=== PATIENT | female | born 1945 | race Caucasian/White ===

== ENCOUNTER 2022-04-24 10:36 | Emergency (ER) | payer MEDICARE, OTHER ==
[~2022-04-24] VITALS: Ht 154.9 cm; Wt 71.4 kg
[~2022-04-24 10:36] MED LIST: CETI10CA PO; CYAN100019 PO; FLO110IN INH; FLUT16SP26 BOTHNARES; HYDR-4353 PO; LEVO75TA PO; METO-539 PO; MONT10TA21 PO; OMEG10007 PO
[2022-04-24 11:00] VITALS: BP 139/66
[2022-04-24] MEDS ORDERED: HYDR-3965 PO (12:18)
== END 2022-04-24 12:43 | disposition home or self-care (01) ==
LOC: ER 10:36
DX: S62.626A Displaced fracture of middle phalanx of right little finger, initial encounter for closed fracture (principal); J45.909 Unspecified asthma, uncomplicated; Z88.5 Allergy status to narcotic agent; Z88.6 Allergy status to analgesic agent; W23.0XXA Caught, crushed, jammed, or pinched between moving objects, initial encounter; Y93.89 Activity, other specified; Y92.89 Other specified places as the place of occurrence of the external cause; Y99.8 Other external cause status
CPT/HCPCS: 29130; 73140; 99283

== ENCOUNTER 2023-07-10 09:49 | Day surgery (SDC) | payer MEDICARE, OTHER ==
[2023-07-06 15:28] LABS: BASOPHILS # (AUTO) 0.1 X10'3 (0-0.2); BASOPHILS % (AUTO) 1.5 % (0-1); EOSINOPHILS # (AUTO) 0.3 X10'3 (0-0.9); EOSINOPHILS % (AUTO) 5.1 % (0-6); HEMATOCRIT 34.4 % (35.0-45.0); HEMOGLOBIN 11.6 g/dl (12.0-16.0); LYMPHOCYTES # (AUTO) 1.5 X10'3 (1.1-4.8); LYMPHOCYTES % (AUTO) 24.3 % (21-51); MEAN CORPUSCULAR HEMOGLOBIN 29.1 PG (27.0-31.0); MEAN CORPUSCULAR HGB CONC 33.7 g/dL (33.0-36.5); MEAN CORPUSCULAR VOLUME 86.5 FL (78-98); MEAN PLATELET VOLUME 6.4 FL (7.4-10.4); MONOCYTES # (AUTO) 0.5 X10'3 (0-0.9); MONOCYTES % (AUTO) 8.8 % (2-12); NEUTROPHILS # (AUTO) 3.7 X10'3 (1.8-7.7); NEUTROPHILS % (AUTO) 60.3 % (42-75); PLATELET COUNT 315 X10'3 (140-440); RED BLOOD COUNT 3.97 X10'6 (4.20-5.60); RED CELL DISTRIBUTION WIDTH 13.7 % (11.5-14.5); WHITE BLOOD COUNT 6.1 X10'3 (4.5-11.0)
[2023-07-06 15:40] LABS: ALANINE AMINOTRANSFERASE 25 U/L (12-78); ALBUMIN 3.8 G/DL (3.4-5.0); ALBUMIN/GLOBULIN RATIO 0.8 (1.1-1.5); ALKALINE PHOSPHATASE 91 IU/L (46-116); ANION GAP 6 (8-16); ASPARTATE AMINO TRANSFERASE 17 U/L (10-37); BILIRUBIN,TOTAL 0.3 MG/DL (0.1-1.0); BLOOD UREA NITROGEN 13 MG/DL (7-18); BUN/CREATININE RATIO 15.9 (10.0-20.0); CALCIUM 9.2 MG/DL (8.5-10.1); CHLORIDE 104 MMOL/L (99-107); CREATININE 0.82 MG/DL (0.40-0.90); GLUCOSE 173 MG/DL (70-104); POTASSIUM 3.8 MMOL/L (3.5-5.1); SODIUM 140 MMOL/L (135-145); TOTAL CARBON DIOXIDE 29.8 MMOL/L (24-32); TOTAL PROTEIN 8.3 G/DL (6.4-8.2); eGFR 67 ML/MIN
[2023-07-10] VITALS (10 sets, daily range): BP systolic 110–127; BP diastolic 58–73; PULSE 79–98; RESP 10–20; TEMP 98.9; O2SAT 93–99
[~2023-07-10] VITALS: Ht 152.4 cm; Wt 68.9 kg
[~2023-07-10 09:49] MED LIST changes: +CYCL-1 PO; +DOCUMENT DATE & TIME OF BETA-BLOCKER PO ONE; +LISI2.5T14 PO; -METO-539 PO; +MONT-47 PO; -MONT10TA21 PO; -OMEG10007 PO; +OXYB-58 PO; +PANT40TA54 PO; +PRAV40TA3 PO; +albuterol 2.5 MG/3 ML nebule NEB ONE; +cefazolin 2gm/D5W 100mL 100 ML IV ONE; +famotidine 20mg tablet PO ONE; +ringers solution, lacted 1,000 ML IV SCH
[2023-07-10] MEDS ORDERED: fentaNYL/PF 50MCG/1 ML 2ML syringe ONE (13:00)
[2023-07-10] MEDS ORDERED: midazolam 1 mg/ML 2ml injection ONE (13:01)
[2023-07-10] MEDS ORDERED: propofol inj 20 ML IV ONE ×2 (13:17)
[2023-07-10] MEDS ORDERED: ondansetron/PF 4mg/2ml inj ONE (13:17)
[2023-07-10] MEDS ORDERED: LIDOcaine 2% (20mg/ml) 5ml vial SQ ONE (13:28)
[2023-07-10] MEDS ORDERED: BUPIVAcaine/PF 2.5mg/ml (0.25%) 10ml vial SQ ONE (13:30)
[2023-07-10] MEDS ORDERED: ringers solution, lacted 1,000 ML IV SCH (14:05)
[2023-07-10] MEDS ORDERED: morphine 2 MG/ML inj. syringe IV PRN (14:05)
[2023-07-10] MEDS ORDERED: meperidine/PF 25mg/ml syringe IV PRN ×3 (14:05)
[2023-07-10] MEDS ORDERED: proCHLORperazine 10 MG/2 ml inj IV PRN (14:05)
[2023-07-10] MEDS ORDERED: morphine 4 MG/ML inj SYRINge IV PRN (14:05)
[2023-07-10] MEDS ORDERED: labetalol 20mg/4ml (5mg/ml) syringe IV PRN (14:05)
[2023-07-10] MEDS ORDERED: hydrALAZINE 20mg/ml inj. IV PRN (14:05)
[2023-07-10] MEDS ORDERED: ondansetron/PF 4mg/2ml inj IV PRN (14:05)
[2023-07-10] MEDS ORDERED: BUPIVAcaine/PF 2.5mg/ml (0.25%) 10ml vial ONE (14:23)
[2023-07-10] MEDS ORDERED: LIDOcaine 2% (20mg/ml) 5ml vial ONE (14:23)
== END 2023-07-10 15:06 | disposition home or self-care (01) ==
LOC: PAS 09:49
PROVIDERS: ATTEND Orthopaedic Surgery Hand Surgery
DX: M19.042 Primary osteoarthritis, left hand (principal); J44.9 Chronic obstructive pulmonary disease, unspecified; G47.33 Obstructive sleep apnea (adult) (pediatric); K21.9 Gastro-esophageal reflux disease without esophagitis; E11.9 Type 2 diabetes mellitus without complications; I10 Essential (primary) hypertension; F32.A Depression, unspecified; F41.9 Anxiety disorder, unspecified; E03.9 Hypothyroidism, unspecified; E66.01 Morbid (severe) obesity due to excess calories; Z68.30 Body mass index [BMI] 30.0-30.9, adult; G89.29 Other chronic pain; Z88.8 Allergy status to other drugs, medicaments and biological substances; Z98.890 Other specified postprocedural states; Z90.49 Acquired absence of other specified parts of digestive tract; Z98.51 Tubal ligation status; Z79.899 Other long term (current) drug therapy; Z79.84 Long term (current) use of oral hypoglycemic drugs; Z72.89 Other problems related to lifestyle; Z80.1 Family history of malignant neoplasm of trachea, bronchus and lung; Z83.3 Family history of diabetes mellitus
CPT/HCPCS: 26860; 36415; 80053; 82948; 85025; 93005; C1713; J0690; J2250; J2405; J2704; J3010; J3490; J7030; J7120; Z7506; Z7508; Z7512; A4215; A4618; A7000; C1769

== ENCOUNTER 2023-11-06 05:48 | Day surgery (SDC) | payer MEDICARE, OTHER ==
[2023-11-01 15:09] LABS: BASOPHILS # (AUTO) 0.1 X10'3 (0-0.2); BASOPHILS % (AUTO) 1.9 % (0-1); EOSINOPHILS # (AUTO) 0.3 X10'3 (0-0.9); LYMPHOCYTES # (AUTO) 1.8 X10'3 (1.1-4.8); LYMPHOCYTES % (AUTO) 29.7 % (21-51); MEAN CORPUSCULAR HEMOGLOBIN 29.7 PG (27.0-31.0); MEAN CORPUSCULAR HGB CONC 33.8 g/dL (33.0-36.5); MEAN PLATELET VOLUME 6.6 FL (7.4-10.4); MONOCYTES # (AUTO) 0.6 X10'3 (0-0.9); MONOCYTES % (AUTO) 9.8 % (2-12); NEUTROPHILS # (AUTO) 3.4 X10'3 (1.8-7.7); NEUTROPHILS % (AUTO) 54.6 % (42-75); PRE OP HEMATOCRIT 33.4 % (35.0-45.0); PRE OP HEMOGLOBIN 11.3 g/dL (12.0-16.0); PRE OP PLATELET COUNT 339 X10'3 (140-440); PRE OP WHITE BLOOD COUNT 6.2 10'3 (4.8-10.8); RED BLOOD COUNT 3.79 X10'6 (4.20-5.60); RED CELL DISTRIBUTION WIDTH 13.9 % (11.5-14.5)
[2023-11-01 15:20] LABS: ALBUMIN 3.9 G/DL (3.4-5.0); ALKALINE PHOSPHATASE 85 IU/L (46-116); BLOOD UREA NITROGEN 15 MG/DL (7-18); BUN/CREATININE RATIO 18.5 (10.0-20.0); CHLORIDE 105 MMOL/L (99-107); CREATININE 0.81 MG/DL (0.40-0.90); PRE OP ALT 21 U/L (30-65); PRE OP ANION GAP 5 (8-16); PRE OP AST 14 U/L (10-37); PRE OP BILIRUB, TOTAL 0.3 MG/DL (0.0-1.0); PRE OP GLUCOSE 99 MG/DL (70-104); PRE OP POTASSIUM 4.1 MMOL/L (3.4-5.1); PRE OP SODIUM 142 MMOL/L (135-145); TOTAL CARBON DIOXIDE 32.2 MMOL/L (24-32); eGFR 68 ML/MIN
[2023-11-06] VITALS (8 sets, daily range): BP systolic 112–139; BP diastolic 63–91; PULSE 83–100; RESP 10–16; TEMP 97–97.6; O2SAT 93–99
[~2023-11-06] VITALS: Ht 152.4 cm; Wt 67.2 kg
[2023-11-06] MEDS: cefazolin 2gm/D5W 100mL 100 ML IV ONE (05:30)
[~2023-11-06 05:48] MED LIST changes: -CYAN100019 PO; -CYCL-1 PO; -DOCUMENT DATE & TIME OF BETA-BLOCKER PO ONE; -FLO110IN INH; -FLUT16SP26 BOTHNARES; -HYDR-4353 PO; -PANT40TA54 PO; -albuterol 2.5 MG/3 ML nebule NEB ONE; -cefazolin 2gm/D5W 100mL 100 ML IV ONE; -famotidine 20mg tablet PO ONE; -ringers solution, lacted 1,000 ML IV SCH
[2023-11-06] MEDS: famotidine 20mg tablet PO ONE (06:49)
[2023-11-06] MEDS: ringers solution, lacted 1,000 ML IV SCH (06:49)
[2023-11-06] MEDS ORDERED: LIDOcaine 2% (20mg/ml) 5ml vial ONE (08:07)
[2023-11-06] MEDS ORDERED: ondansetron/PF 4mg/2ml inj IV PRN (08:20)
[2023-11-06] MEDS ORDERED: fentaNYL/PF 50MCG/1 ML 2ML syringe IV PRN ×2 (08:20)
[2023-11-06] MEDS ORDERED: hydrALAZINE 20mg/ml inj. IV PRN (08:20)
[2023-11-06] MEDS ORDERED: acetaminophen 1,000mg/100ml IV 100 ML IV ONE (08:20)
[2023-11-06] MEDS ORDERED: ketorolac tromethamine 15mg/ml inj. IV ONE (08:20)
[2023-11-06] MEDS ORDERED: meperidine/PF 25mg/ml syringe IV PRN (08:20)
[2023-11-06] MEDS ORDERED: proCHLORperazine 10 MG/2 ml inj IV PRN (08:20)
[2023-11-06] MEDS ORDERED: labetalol 20mg/4ml (5mg/ml) syringe IV PRN (08:20)
[2023-11-06] MEDS ORDERED: ringers solution, lacted 1,000 ML IV SCH (08:20)
[2023-11-06] MEDS ORDERED: dexamethasone sod phosphate 10mg/ml inj ONE (08:21)
[2023-11-06] MEDS ORDERED: fentaNYL/PF 50MCG/1 ML 2ML syringe ONE (08:30)
[2023-11-06] MEDS ORDERED: midazolam 1 mg/ML 2ml injection ONE (08:30)
[2023-11-06] MEDS: BUPIVAcaine/PF 2.5mg/ml (0.25%) 10ml vial ONE (08:59)
[2023-11-06] MEDS: LIDOcaine 2% (20mg/ml) 5ml vial ONE (08:59)
[2023-11-06] MEDS ORDERED: propofol inj 20 ML IV ONE ×2 (09:24)
== END 2023-11-06 10:29 | disposition home or self-care (01) ==
LOC: PAS 05:48
PROVIDERS: ATTEND Orthopaedic Surgery Hand Surgery
DX: M19.042 Primary osteoarthritis, left hand (principal); I10 Essential (primary) hypertension; E11.9 Type 2 diabetes mellitus without complications; E03.9 Hypothyroidism, unspecified; I25.2 Old myocardial infarction; I20.9 Angina pectoris, unspecified; G47.33 Obstructive sleep apnea (adult) (pediatric); J44.9 Chronic obstructive pulmonary disease, unspecified; K21.9 Gastro-esophageal reflux disease without esophagitis; Z79.890 Hormone replacement therapy; Z79.84 Long term (current) use of oral hypoglycemic drugs; Z79.891 Long term (current) use of opiate analgesic; Z79.899 Other long term (current) drug therapy; Z90.49 Acquired absence of other specified parts of digestive tract; Z98.51 Tubal ligation status; Z98.890 Other specified postprocedural states; Z88.8 Allergy status to other drugs, medicaments and biological substances
CPT/HCPCS: 26860; 36415; 80053; 82948; 85025; C1713; J0690; J1100; J2250; J2405; J2704; J3010; J3490; J7030; J7120; Z7506; Z7508; Z7512; A4215; A4618; A7000; C1769

== ENCOUNTER 2024-11-25 07:16 | Day surgery (SDC) | payer MEDICARE, OTHER ==
--- NOTE | 2024-11-22 13:13 | ELECTROCARDIOGRAPH REPORT ---
[facility] Test Date: 2024-11-22 Test Time: 13:09:55 Pat Name: PEG OVALLE Department: [facility]-PRE-OP Patient ID: [facility]-[id number] Room: Gender: F [employer] Agent: ZORAIDA : 1945 Requested By: YULISSA SHAH Order Number: [id number] Reading MD: Dr. Inna Ponce Measurements Intervals [place] Rate: 95 P: 55 WI: 159 QRS: 5 QRSD: 95 T: 24 QT: 411 QTc: 517 Interpretive Statements Sinus rhythm Prolonged QT interval Electronically Signed On 11-24-2024 19:11:[address] Inna Ponce Please click the below link to view image of tracing.
[2024-11-22 13:39] LABS: BASOPHILS # (AUTO) 0.1 X10'3 (0-0.2); BASOPHILS % (AUTO) 1.7 % (0-1); EOSINOPHILS # (AUTO) 0.3 X10'3 (0-0.9); EOSINOPHILS % (AUTO) 5.5 % (0-6); LYMPHOCYTES # (AUTO) 1.7 X10'3 (1.1-4.8); LYMPHOCYTES % (AUTO) 32.3 % (21-51); MEAN CORPUSCULAR HEMOGLOBIN 29.3 PG (27.0-31.0); MEAN CORPUSCULAR HGB CONC 34.2 g/dL (33.0-36.5); MEAN CORPUSCULAR VOLUME 85.6 FL (78-98); MEAN PLATELET VOLUME 6.9 FL (7.4-10.4); MONOCYTES # (AUTO) 0.6 X10'3 (0-0.9); MONOCYTES % (AUTO) 10.8 % (2-12); NEUTROPHILS # (AUTO) 2.7 X10'3 (1.8-7.7); NEUTROPHILS % (AUTO) 49.7 % (42-75); PRE OP HEMATOCRIT 33.9 % (35.0-45.0); PRE OP HEMOGLOBIN 11.6 g/dL (12.0-16.0); PRE OP PLATELET COUNT 306 X10'3 (140-440); PRE OP WHITE BLOOD COUNT 5.4 10'3 (4.8-10.8); RED BLOOD COUNT 3.96 X10'6 (4.20-5.60); RED CELL DISTRIBUTION WIDTH 15.1 % (11.5-14.5)
[2024-11-22 13:41] LABS: ALBUMIN 4.3 G/DL (3.4-5.0); ALKALINE PHOSPHATASE 95 IU/L (46-116); BLOOD UREA NITROGEN 11 MG/DL (7-18); BUN/CREATININE RATIO 11.3 (10.0-20.0); CALCIUM 9.5 MG/DL (8.5-10.1); CHLORIDE 104 MMOL/L (99-107); CREATININE 0.97 MG/DL (0.40-0.90); PRE OP ALT 22 U/L (30-65); PRE OP ANION GAP 7 (8-16); PRE OP AST 19 U/L (10-37); PRE OP BILIRUB, TOTAL 0.6 MG/DL (0.0-1.0); PRE OP GLUCOSE 119 MG/DL (70-104); PRE OP POTASSIUM 3.9 MMOL/L (3.4-5.1); PRE OP SODIUM 142 MMOL/L (135-145); TOTAL CARBON DIOXIDE 31.2 MMOL/L (24-32); TOTAL PROTEIN 8.5 G/DL (6.4-8.2); eGFR 55 ML/MIN
[2024-11-25] VITALS (15 sets, daily range): BP systolic 116–138; BP diastolic 62–77; PULSE 74–116; RESP 10–16; TEMP 97.5; O2SAT 93–100
[~2024-11-25] VITALS: Ht 152.4 cm; Wt 67.0 kg
[2024-11-25] MEDS: ceFAZolin 2gm/dext,iso 50mL 50 ML IV ONE (05:30)
[~2024-11-25 07:16] MED LIST changes: +ALLERGY SHOTS INJ; -CETI10CA PO; +CYCL-394 PO; -LEVO75TA PO; -MONT-47 PO; +PANT-47 PO; +ringers solution, lactated 500 ML IV SCH
[2024-11-25] MEDS: famotidine 20mg tablet PO ONE (09:00)
[2024-11-25] MEDS ORDERED: BUPIVAcaine/PF 2.5mg/ml (0.25%) 10ml vial ONE (10:25)
[2024-11-25] MEDS ORDERED: LIDOcaine 2% (20mg/ml) 5ml vial ONE (10:25)
[2024-11-25] MEDS ORDERED: fentaNYL/PF 50MCG/1 ML 2ML syringe ONE (10:39)
[2024-11-25] MEDS ORDERED: midazolam 1 mg/ML 2ml injection ONE (10:40)
[2024-11-25] MEDS ORDERED: propofol inj 20 ML IV ONE ×2 (10:48)
[2024-11-25] MEDS ORDERED: ondansetron/PF 4mg/2ml inj ONE (10:48)
[2024-11-25] MEDS ORDERED: proCHLORperazine 10 MG/2 ml inj IV PRN (11:30)
[2024-11-25] MEDS ORDERED: ringers solution, lacted 1,000 ML IV SCH (11:30)
[2024-11-25] MEDS ORDERED: acetaminophen 1,000mg/100ml IV 100 ML IV PRN (11:30)
[2024-11-25] MEDS ORDERED: fentaNYL/PF 50MCG/1 ML 2ML syringe IV PRN ×2 (11:30)
[2024-11-25] MEDS ORDERED: labetalol 20mg/4ml (5mg/ml) syringe IV PRN (11:30)
[2024-11-25] MEDS ORDERED: meperidine/PF 25mg/ml syringe IV PRN (11:30)
[2024-11-25] MEDS ORDERED: ondansetron/PF 4mg/2ml inj IV PRN (11:30)
[2024-11-25] MEDS ORDERED: hydrALAZINE 20mg/ml inj. IV PRN (11:30)
--- NOTE | 2024-11-28 15:29 | OPERATIVE REPORT ---
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 She has longstanding right small finger PIPJ joint arthritis stiffness and pain. Surgery is indicated to relieve pain and improve function. Risks and benefits were discussed with the patient. Some of the risks of this type of procedure include but are not limited to infection, bleeding, failure to heal, hardware pain and stiffness of surrounding joints. She agreed to proceed. Once in the operating room the arm was prepped and draped in usual manner. A tourniquet was used at the base of the digit. The proper time-out procedure was identified. Local anesthetic was infiltrated in the palm proximal to the small finger. A straight incision was made over the dorsal PIPJ joint and a tendon splitting incision was made. Collateral ligaments were excised and the joint was hyperflexed. Large osteophytes were removed using a rongeur and a sagittal saw was used to create flat cuts on either side of the arthrodesis site at about a 40 degree angle. FluoroScan was used to help the visualize and check positioning. A guide pin was advanced from the dorsal proximal phalanx out through the and an up the shaft of the middle phalanx. After checking with fluoro measurements were obtained and the drill was advanced over the guide pin. The cannulated screw 2.5 mm diameter was then advanced over the guide pin under fluoro guidance and compressing the arthrodesis site. The pin was removed and final fluoro images obtained. Clinically the finger was in good position. The incision was irrigated and closed in layers. The tourniquet was removed. A sterile dressing was then applied along with a splint. The patient was taken to the recovery room in stable condition and tolerated the procedure well. MARTIN JASSO Jr., MD Nov 28, 2024 15:29
== END 2024-11-25 14:02 | disposition home or self-care (01) ==
LOC: PAS 07:16
PROVIDERS: ATTEND Orthopaedic Surgery Hand Surgery
DX: M19.041 Primary osteoarthritis, right hand (principal); I10 Essential (primary) hypertension; G47.33 Obstructive sleep apnea (adult) (pediatric); J44.9 Chronic obstructive pulmonary disease, unspecified; E11.9 Type 2 diabetes mellitus without complications; K21.9 Gastro-esophageal reflux disease without esophagitis; E03.9 Hypothyroidism, unspecified; G47.30 Sleep apnea, unspecified; Z79.899 Other long term (current) drug therapy; Z98.890 Other specified postprocedural states; M19.042 Primary osteoarthritis, left hand; E66.9 Obesity, unspecified; J45.909 Unspecified asthma, uncomplicated; Z98.51 Tubal ligation status; Z80.8 Family history of malignant neoplasm of other organs or systems; Z80.1 Family history of malignant neoplasm of trachea, bronchus and lung
CPT/HCPCS: 26860; 36415; 80053; 82948; 85025; 93005; A4215; A4618; A7000; C1713; C1769; J2003; J2250; J2405; J2704; J3010; J3490; J7030; J7120; Z7506; Z7512; Z7610